=== PATIENT | male | born 1970 | race Caucasian/White ===

== ENCOUNTER 2023-05-28 12:58 | Emergency (ER) | payer OTHER, SELFPAY ==
[2023-05-28] VITALS (14 sets, daily range): BP systolic 110–119; BP diastolic 79–92; PULSE 69–75; RESP 16; TEMP 36.7; O2SAT 95–98; BMI 29.0
--- NOTE | 2023-05-28 13:48 | CRLHL7_ITS ---
For Patients: As a result of the Century Cures Act, medical imaging exams and procedure reports are released immediately into your electronic medical record. You may view this report before your referring provider. If you have questions, please contact your health care provider. INDICATION: Chest pain COMPARISON: May 27, 2013 TECHNIQUE: PA and lateral views of the chest were acquired FINDINGS: TUBES AND LINES: None. HEART AND MEDIASTINUM: The heart size is normal. The mediastinal contour appears normal for patient age.Evidence of remote granulomatous infection with calcified lymph nodes at the left hilum LUNGS AND PLEURAL SPACES: The lungs appear normal.The pleural spaces are unremarkable. OSSEOUS STRUCTURES: Age-appropriate appearance. No acute focal finding. IMPRESSION: No evidence of active pulmonary disease. Dictated by Neptali Roque MD @ 05/28/2023 2:42:59 PM (Electronically Signed)
--- NOTE | 2023-05-28 13:56 | ED_ITS ---
HPI - General Adult General Time Seen by Provider: 13:56 Date Seen: 05/28/23 Chief complaint: Chest Pain Stated complaint: weird feeling in chest Time Seen by Provider: 05/28/23 12:59 Source: patient Mode of arrival: ambulatory Limitations: no limitations History of Present Illness HPI narrative: Patient is a 52-year-old male with no pertinent medical problems presenting to emergency department for chest discomfort. Says the symptoms have been going on for the past 5 days. Says his left upper chest it does not radiate. States diffuse slightly like a pressure sensation. Palpation does make it worse place says is not quite the same pain. Does admit to having symptoms like this about 7 8 years ago and was fully evaluated the stress test and echocardiogram which did not show any abnormalities according to him. He states the symptoms seem to be going on and off but has been gradually getting more consistent. Denies cancer history, recent travel, recent surgeries, or history of blood clots, smoking, family history of heart disease, drug use. Does states he averages about 1 alcoholic beverage a day. Denies shortness of breath, as, dizziness, abdominal pain. He was concerned it could be related to his ibuprofen use and GERD but notes he has no epigastric or mid sternal pain and eating and drinking is not changes symptoms Related Data Home Medications Medication Instructions Recorded Confirmed cetirizine 10 mg tablet (Aller-Choco) 5 mg PO QHS PRN 05/28/23 05/28/23 loratadine 10 mg tablet (Claritin) 10 mg PO DAILY 05/28/23 05/28/23 multivitamin (Daily Multi-Vitamin 1 tab PO DAILY 05/28/23 05/28/23 tablet) omega 9-whe-lms-fish oil 1,000 mg 1 cap PO BID 05/28/23 05/28/23 (120 mg-180 mg) capsule (Fish Oil) Allergies Allergy/AdvReac Type Severity Reaction Status Date / Time No Known Drug Allergies Allergy Verified 05/28/23 13:18 Review of Systems Status of ROS: Reports: 10 or more systems reviewed and unremarkable except as noted in History and below PFS PFS Social History Smoking Status: Never smoker How often do you have a drink containing alcohol: 4 or more times a week How many standard drinks containing alcohol do you have on a typical day: 1 or 2 AUDIT-C Alcohol total score: 4 Non-prescribed substance use: denies use service: No Exam Narrative: Exam Narrative: Const: Well-nourished, Well-developed, in mild distress Eyes: PERRL, no conjunctival injection, and symmetrical lids ENMT: Atraumatic external nose and ears. Moist mucous membranes. Neck: Symmetric, trachea midline, No thyromegaly. CVS: RRR, No murmurs or gallops. Peripheral pulses 2+ and equal in all extremities RESP: Unlabored respiratory effort. Clear to auscultation bilaterally. GI: Nontender/Nondistended, No rebound or guarding. MSK:Extremities w/o deformity, Normal Active ROM. Mild discomfort to palpation of the chest wall Skin: Warm, Dry. No rashes or lesions. Neuro: Normal Muscle tone, No focal neurological deficits. Psych: Awake, Alert, & Oriented x3. Appropriate mood and affect. Const: Vital Signs, click to edit/add: Vital Signs - 24 hr 05/28/23 13:11 05/28/23 14:50 05/28/23 14:51 Temperature 98.1 F Pulse Rate 69 71 Pulse Rate [Right Pulse Oximeter] 69 Respiratory Rate 16 Blood Pressure 115/80 Blood Pressure [Ri ght Upper Arm] 118/79 Pulse Oximetry 97 97 96 Oxygen Delivery Me thod Room Air 05/28/23 15:00 05/28/23 15:01 Temperature Pulse Rate 72 73 Pulse Rate [Right Pulse Oximeter] Respiratory Rate Blood Pressure 119/92 H Blood Pressure [Ri ght Upper Arm] Pulse Oximetry 95 95 Oxygen Delivery Me thod Course Vital Signs Vital signs: Initial Vital Signs Temperature 98.1 F 05/28/23 13:11 Temperature Source Temporal Artery Scan 05/28/23 13:11 Pulse Rate 69 05/28/23 13:11 Pulse Rhythm Regular 05/28/23 13:11 Respiratory Rate 16 05/28/23 13:11 Blood Pressure 118/79 05/28/23 13:11 Blood Pressure Mean 92 05/28/23 13:11 Blood Pressure Position Sitting 05/28/23 13:11 Pulse Oximetry 97 05/28/23 13:11 Oxygen Delivery Method Room Air 05/28/23 13:11 Vital Signs Temperature 98.1 F 05/28/23 13:11 Pulse Rate 69 05/28/23 13:11 Respiratory Rate 16 05/28/23 13:11 Blood Pressure 118/79 05/28/23 13:11 Pulse Oximetry 97 05/28/23 13:11 Oxygen Delivery Method Room Air 05/28/23 13:11 Temperature 98.1 F 05/28/23 13:11 Pulse Rate 73 05/28/23 15:01 Respiratory Rate 16 05/28/23 13:11 Blood Pressure 119/92 H 05/28/23 15:01 Pulse Oximetry 95 05/28/23 15:01 Oxygen Delivery Method Room Air 05/28/23 13:11 Medical Decision Making MDM Narrative Medical decision making narrative: Patient is a 52-year-old male presenting management for chest pain over the past 5 days previous is intermittent but has been consuming more constant since Friday. Denies shortness of breath. His symptoms like this 8 years ago and was told it might be from his ibuprofen and GERD. This states been taking ibuprofen again for knee pain over the past week. Does not have any midsternal discomfort. Low risk for blood clot right now we will order D-dimer. Cardiac workup was ordered. Chest x-ray shows no signs of pneumothorax, pneumonia or widened mediastinum. D-dimer was within normal limits in a pulmonary embolism is unlikely. Repeat troponin was 0. He is otherwise doing well. COVID flu/RSV is negative. Unclear exactly what is causing his chest pain when he does note he did some physical labor on Friday was mildly exacerbated a muscle strain a previously had. No acute signs of ACS, pulmonary embolism, aortic dissection, pneumothorax. The patient be discharged home. He is agreeable to this plan. Lab Data Labs: Lab Results 05/28/23 05/28/23 05/28/23 Range/Units 14:10 14:17 16:29 WBC 4.21 L (4.50-11.00) K/uL RBC 5.25 (4.30-5.90) m/uL Hgb 16.0 (13.5-17.5) gm/dL Hct 47.2 (37.0-53.0) % MCV 90 (80-100) fL MCH 31 (26-34) pg MCHC 34 (32-36) gm/dL RDW Coeff of [place] 12.3 (11.5-15.5) % Plt Count 167 (140-440) K/uL Neut % (Auto) 63.6 (42.0-72.0) % Lymph % (Auto) 25.7 (20-44) % [place] % (Auto) 9.3 (0.0-11.0) % Eos % (Auto) 0.7 (0.0-7.0) % Baso % (Auto) 0.7 (0.0-3.0) % Neut # (Auto) 2.70 (1.7-7.0) K/uL Lymph # (Auto) 1.10 (0.90-2.90) K/uL [place] # (Auto) 0.40 (0.00-0.90) K/UL Eos # (Auto) 0.00 (0.00-0.50) K/uL Baso # (Auto) 0.00 (0.00-0.30) K/uL Abs Immat Gran (auto) 0.00 (0.00-0.30) K/uL Imm/Tot Granulo (auto) 0.0 % D-Dimer Quant (PE/DVT) 0.45 (0.00-0.50) ug/ml Sodium 139 (135-149) mmol/L Potassium 3.9 (3.6-5.1) mmol/L Chloride 104 (96-114) mmol/L Carbon Dioxide 27 (20-32) mmol/L BUN 16 (7-30) mg/dL Creatinine 1.1 (0.5-1.5) mg/dL Estimated Creat Clear 90.80 Estimated GFR 82 ml/min Glucose 86 (60-115) mg/dL Calcium 9.2 (8.4-10.6) mg/dL Total Bilirubin 0.8 (0.1-1.5) mg/dL AST 43 H (12-35) U/L ALT 35 (4-50) U/L Alkaline Phosphatase 83 (40-150) U/L Troponin I < 0.01 L (0.01-0.04) ng/mL Total Protein 7.4 (6.0-8.3) g/dL Albumin 4.4 (3.3-5.0) g/dL SARS-CoV-2 (PCR) Negative SARS-CoV-2 (Negative) Influenza Type A (PCR) Negative PCR FLU A (Negative) Influenza Type B (PCR) Negative PCR FLU B (Negative) RSV (PCR) Negative PCR RSV (Negative) POC Troponin I 0.00 L (0.01-0.04) ng/ml Imaging Data Chest x-ray: Radiologist's impression: INDICATION: Chest pain COMPARISON: May 27, 2013 TECHNIQUE: PA and lateral views of the chest were acquired FINDINGS: TUBES AND LINES: None. HEART AND MEDIASTINUM: The heart size is normal. The mediastinal contour appears normal for patient age.Evidence of remote granulomatous infection with calcified lymph nodes at the left hilum LUNGS AND PLEURAL SPACES: The lungs appear normal.The pleural spaces are unremarkable. OSSEOUS STRUCTURES: Age-appropriate appearance. No acute focal finding. IMPRESSION: No evidence of active pulmonary disease. Dictated by Neptali Roque MD @ 05/28/2023 2:42:59 PM ECG Data Attestation: I personally reviewed and interpreted this ECG as follows: Prior ECG tracings: not available for review Interpretation: Normal sinus rhythm with a rate of 74 beats per minute, normal intervals, normal axis, no ST or T-wave abnormalities. Discharge Plan Discharge Clinical Impression: Atypical chest pain Patient Disposition: Home, Self-Care Condition: Stable Instructions: Noncardiac Chest Pain (ED) Additional Instructions: Follow-up with the primary care provider. Return for new worsening symptoms. Your lab work and imaging show no acute signs of blood clots in the lungs or any issues with the heart. Follow up with the primary care provider. return for new or worsening symptoms. Prescriptions: No Action loratadine [Claritin] 10 mg tablet 10 mg PO DAILY cetirizine [Aller-Choco] 10 mg tablet 5 mg PO QHS PRN omega 9-tzh-tzy-fish oil [Fish Oil] 1,000 mg (120 mg-180 mg) capsule 1 cap PO BID multivitamin [Daily Multi-Vitamin] Tablet 1 tab PO DAILY Follow Up/Referrals: Crispin Jean MD [Primary Care Provider] - Stand Alone Forms: [employer] Info Instructions
[2023-05-28 14:19] LABS: Basophils Percent Auto 0.7 % (0.0-3.0); Eosinophils Percent Auto 0.7 % (0.0-7.0); Hematocrit 47.2 % (37.0-53.0); Lymphocytes Percent Auto 25.7 % (20-44); Mean Corpuscular HGB Conc 34 gm/dL (32-36); Mean Corpuscular Hemoglobin 31 pg (26-34); Mean Corpuscular Volume 90 fL (80-100); Monocytes Percent Auto 9.3 % (0.0-11.0); Neutrophils Percent Auto 63.6 % (42.0-72.0); Platelet Count* 167 K/uL (140-440); RDW Coefficient of Variation % 12.3 % (11.5-15.5); Red Blood Count 5.25 m/uL (4.30-5.90); White Blood Count* 4.21 K/uL (4.50-11.00)
[2023-05-28 14:26] LABS: Slide Review Reflex No
[2023-05-28 14:34] LABS: Albumin* 4.4 g/dL (3.3-5.0); Chloride* 104 mmol/L (96-114); Potassium* 3.9 mmol/L (3.6-5.1); Sodium* 139 mmol/L (135-149)
[2023-05-28 14:37] LABS: Alanine Aminotransferase* 35 U/L (4-50); Alkaline Phosphatase* 83 U/L (40-150); Aspartate Amino Transferase* 43 U/L (12-35); Bilirubin Total* 0.8 mg/dL (0.1-1.5); Blood Urea Nitrogen* 16 mg/dL (7-30); Carbon Dioxide* 27 mmol/L (20-32); Creatinine* 1.1 mg/dL (0.5-1.5); Estimated Glomerular Filt Rate 82 ml/min; Glucose* 86 mg/dL (60-115); Total Protein* 7.4 g/dL (6.0-8.3)
[2023-05-28 14:38] LABS: Calcium* 9.2 mg/dL (8.4-10.6)
[2023-05-28 14:42] LABS: D Dimer Quantitative* 0.45 ug/ml (0.00-0.50)
[2023-05-28 14:59] LABS: PCR FLU A Negative PCR FLU A (Negative); PCR FLU B Negative PCR FLU B (Negative); PCR RSV Negative PCR RSV (Negative)
[2023-05-28 15:02] LABS: SARS PCR* Negative SARS-CoV-2 (Negative)
[2023-05-28 15:05] LABS: Troponin I* < 0.01 ng/mL (0.01-0.04)
== END 2023-05-28 16:52 | disposition home or self-care (01) ==
PROVIDERS: Emergency Provider Student in an Organized Health Care Education/Training Program; PCP Family Medicine
DX: R07.89 Other chest pain (principal)
CPT/HCPCS: 36415; 71046; 80053; 84484; 85025; 85379; 87631; 93005; 99283; 99284; 99285